=== PATIENT | female | born 1970 | race Caucasian/White ===

== ENCOUNTER 2022-01-13 19:23 | Emergency (ER) | payer SELFPAY ==
[~2022-01-13] VITALS: Ht 157.5 cm; Wt 56.7 kg
[2022-01-13] MEDS ORDERED: KETOROLAC TROMETHAMINE INJ 30 MG/ML VIAL ONE (20:59)
[2022-01-13] MEDS ORDERED: TDAP [DIPH/PERTUSSIS/TET] 0.5 ML VIAL IM ONE ×2 (20:59→21:00)
[2022-01-13] MEDS ORDERED: ONDANSETRON 4 MG TAB.RAPDIS ONE (20:59)
[2022-01-13] MEDS ORDERED: KETOROLAC TROMETHAMINE INJ 30 MG/ML VIAL IM ONE (21:00)
[2022-01-13] MEDS ORDERED: ONDANSETRON 4 MG TAB.RAPDIS SL ONE (21:00)
[2022-01-13] MEDS ORDERED: KETOROLAC TROMETHAMINE 15 MG/ML VIAL ONE (21:01)
--- NOTE | 2022-01-13 21:12 | NUR ---
PT TAKEN TO CT VIA YING
--- NOTE | 2022-01-13 21:16 | NUR ---
Leona hernandez in [facility] - 01/13/22 at 2120 by KEVEN PT TAKEN TO CT
--- NOTE | 2022-01-13 21:16 | NUR ---
PT TAKEN TO CT
[2022-01-13] MEDS ORDERED: AMOX-430 PO (22:46)
[2022-01-13] MEDS ORDERED: LORA-258 PO (22:46)
[2022-01-13 22:49] VITALS: BP 145/88
--- NOTE | 2022-01-13 22:49 | NUR ---
Patient discharged to home in stable condition. Written and verbal after care instructions given. Patient verbalizes understanding of instruction.
[2022-01-13] MEDS ORDERED: LORAZEPAM 0.5 MG TABLET ONE (22:50)
[2022-01-13] MEDS ORDERED: LORAZEPAM 1 MG TABLET PO ONE (23:00)
== END 2022-01-13 22:59 | disposition home or self-care (01) ==
LOC: ER 19:33
DX: S61.233A Puncture wound without foreign body of left middle finger without damage to nail, initial encounter (principal); F41.0 Panic disorder [episodic paroxysmal anxiety]; R51.9 Headache, unspecified; Z79.899 Other long term (current) drug therapy; W54.0XXA Bitten by dog, initial encounter; Y93.89 Activity, other specified; Y92.89 Other specified places as the place of occurrence of the external cause; Y99.8 Other external cause status
CPT/HCPCS: 99284; 70450; 96372; 90471; 90715; 73130; Q0162; J1885